=== PATIENT | female | born 1975 | race African-American/Black ===

== ENCOUNTER → 2016-10-06 | Outpatient (CLI) | payer BC ==
[2015-10-02 22:56] VITALS: BP 136/84
[~2016-10-06] MED LIST: CONTRAST GIVEN MC PRN; GADOBUTROL 7.5 MMOL/7.5 ML VIAL INT ART ONE; IOHEXOL 300 MG/ML 50 ML VIAL. INT ART ONE; LIDOCAINE 1% Multi-Dose 20 ML VIAL. ID ONE; METH-37 PO; TRAM-29 PO
--- NOTE | 2016-10-06 16:16 | KCIC ---
PROCEDURE MR arthrogram of the right shoulder HISTORY Right shoulder pain, post rotator cuff repair. TECHNIQUE Intra-articular contrast injected prior to the scan, and reported separately. The standard 4 plane sequences were obtained including ABER positioning. COMPARISON December 30, 2015 FINDINGS Acromioclavicular joint is intact. There has been rotator cuff repair with suture anchors at the greater tuberosity. T2 weighted images demonstrate diffuse thickening and heterogeneity of the rotator cuff particularly at the footplate attachment. The contrast sensitive images demonstrate broad undersurface contrast filled defect at the supraspinatus tendon footplate, which measures 20 millimeters AP diameter. This is at least 90 percent across, and at the far anterior supraspinatus footprint appears full-thickness, coronal series 6, image 10 and 11. Milder contrast accumulation within the infra spinatus tendon. No evidence of subscapularis tendon tear. No apparent labral tear. No acute articular cartilage defect. Proximal biceps tendon not visualized. This could indicate a tenodesis versus proximal rupture. No bone lesion or acute fracture. No acute soft tissue injury. IMPRESSION 1. Rotator cuff repair. There is a broad and deep undersurface defect of the supraspinatus tendon, full-thickness at the far anterior edge of the footplate attachment, suspicious for non retracted recurrent tear. 2. Nonvisualized proximal biceps tendon, compatible with surgical tenodesis versus proximal tear. Electronically signed by: Denzel Jules MD (October 06, 2016 16:15:17)
--- NOTE | 2016-10-06 16:30 | KCIC ---
PROCEDURE: Right shoulder injection using fluoroscopic guidance, prior to MR. HISTORY: Shoulder pain. TECHNIQUE: The procedure was explained to the patient as were potential risks, including among others infection, bleeding or allergic reaction. All questions were answered. Informed written and verbal consent was obtained. The shoulder was prepped and draped in the usual sterile manner. Following administration of local anesthetic, a 22-gauge needle was advanced into the anterior shoulder. Following negative aspiration, 12 cc of a solution of 5cc Omnipaque-300 contrast, 5 cc 1% lidocaine, 10 cc normal saline, and 0.1 cc gadolinium was injected without difficulty. The needle was removed. There was good hemostasis at the injection site. The patient left in stable condition without immediate complication. The patient was given postprocedural instructions, and instructed to contact us or the ER if there are any complications. A single spot image is obtained. FLUOROSCOPY TIME: 16 seconds Electronically signed by: Denzel Jules MD (October 06, 2016 16:29:11)
== END | disposition home or self-care (01) ==
LOC: KCIC 12:43
PROVIDERS: ATTEND Orthopaedic Surgery
DX: M25.511 Pain in right shoulder (principal); G89.29 Other chronic pain
CPT/HCPCS: 73040; 73222; Q9967; A9585